=== PATIENT | female | born 1945 | race Caucasian/White ===

== ENCOUNTER 2019-10-13 20:25 | Emergency (ER) | payer OTHER, MEDICARE ==
[~2019-10-13] VITALS: Ht 160 cm; Wt 77.1 kg
[2019-10-13 20:41] VITALS: BP_SYST 153
--- NOTE | 2019-10-13 20:46 | NUR ---
ER PA keller at bedside examining patient.
--- NOTE | 2019-10-13 20:48 | NUR ---
Patient to [facility] chair to [facility] for evaluation. Side rails up. Report given to TEZ Nix
--- NOTE | 2019-10-13 20:52 | NUR ---
74 y/o F presents to ED w/ c/o of left 5th digit pain. Pt states she had tripped and jammed her finger. Pt noted some deformity post fall to finger. No Hx of any broken fingers. Pt denies any ALOC, or any other associated pain. Will continue to monitor.
--- NOTE | 2019-10-13 20:55 | NUR ---
Dr. Daniel at bedside examining Pt.
[2019-10-13] MEDS ORDERED: KETOROLAC TROMETHAMINE 60 MG/2 ML VIAL IM ONE ×3 (21:00→21:07)
[2019-10-13 21:35] VITALS: BP_SYST 145
--- NOTE | 2019-10-13 21:35 | NUR ---
Patient given written and verbal discharge instructions and verbalizes understanding. ER MD discussed with patient the results and treatment provided. Patient in stable condition. ID arm band removed. Rx of Naprosyn 500 mg tab given. Patient educated on pain management and to follow up with PMD. Pain Scale 0/10. Opportunity for questions provided and answered. Medication side effect fact sheet provided.
--- NOTE | 2019-10-14 04:19 | NUR ---
Note undone in EDM - 10/14/19 at 0424 by JOELLEN 74 y/o F presents to ED w/ c/o of left 5th digit pain. Pt states she had tripped and jammed her finger. Pt noted some deformity post fall to finger. No Hx of any broken fingers. Pt denies any ALOC, or any other associated pain. Will continue to monitor.
== END 2019-10-13 21:35 | disposition home or self-care (01) ==
LOC: SED 20:25
DX: S63.267A Dislocation of metacarpophalangeal joint of left little finger, initial encounter (principal); I10 Essential (primary) hypertension; W01.0XXA Fall on same level from slipping, tripping and stumbling without subsequent striking against object, initial encounter; Y93.89 Activity, other specified; Y92.89 Other specified places as the place of occurrence of the external cause; Y99.8 Other external cause status
CPT/HCPCS: 26770; 73130; 96372; 99284; J1885